=== PATIENT | female | born 1995 | race Caucasian/White ===

== ENCOUNTER → 2022-11-03 | Outpatient (REF) | payer OTHER | LOC: M LAB REF 16:33 | PROVIDERS: ATTEND Nurse Practitioner Family | DX: R30.0 Dysuria (principal) ==

== ENCOUNTER → 2023-03-26 | Outpatient (REF) | payer OTHER ==
[2023-03-26 18:53] LABS: ALBUMIN 3.9 G/DL (3.2-5.2); ALKALINE PHOSPHATASE 65 U/L (46-116); ALT/SGPT 59 U/L (7.0-40); AST/SGOT 30 U/L (<34); BILIRUBIN,TOTAL 0.2 MG/DL (0.3-1.2); BLOOD UREA NITROGEN 13 MG/DL (9-23); CALCIUM LEVEL 9.3 MG/DL (8.5-10.1); CARBON DIOXIDE LEVEL 25 MMOL/L (20-31); CHLORIDE LEVEL 103 MMOL/L (98-107); CHOLESTEROL LEVEL 184 MG/DL (<200); CHOLESTEROL RISK RATIO 5.76 (<5); CREATININE FOR GFR 0.59 MG/DL (0.55-1.30); GLOMERULAR FILTRATION RATE > 60.0 (>60); GLUCOSE, FASTING 104 MG/DL (60-100); HDL CHOLESTEROL 31.9 MG/DL (>40); LDL CHOLESTEROL 101.9 MG/DL (<100); MAGNESIUM LEVEL 1.8 MG/DL (1.8-2.4); NON-HDL-C 152.1 MG/DL; POTASSIUM SERUM 4.8 MMOL/L (3.5-5.1); SODIUM LEVEL 136 MMOL/L (136-145); TOTAL PROTEIN 7.4 G/DL (5.7-8.2); TRIGLYCERIDES LEVEL 251 MG/DL (<150)
== END ==
LOC: M LAB REF 17:35
PROVIDERS: ATTEND Nurse Practitioner Family
DX: E83.42 Hypomagnesemia (principal); R79.89 Other specified abnormal findings of blood chemistry

== ENCOUNTER → 2023-04-12 | Outpatient (CLI) | payer OTHER | LOC: M RAD 07:50 | PROVIDERS: ATTEND Nurse Practitioner Family | DX: Z87.442 Personal history of urinary calculi (principal) ==

== ENCOUNTER → 2023-04-22 | Outpatient (CLI) | payer OTHER | LOC: M RAD 10:17 | PROVIDERS: ATTEND Nurse Practitioner Family | DX: Z87.442 Personal history of urinary calculi (principal) ==

== ENCOUNTER → 2023-12-07 | Outpatient (CLI) | payer OTHER | LOC: M RAD 07:24 | PROVIDERS: ATTEND Physician Assistant | DX: E74.01 von Gierke disease (principal) ==

== ENCOUNTER → 2024-05-16 | Outpatient (REF) | payer OTHER | LOC: M LAB REF 17:10 | PROVIDERS: ATTEND Physician Assistant | DX: J02.9 Acute pharyngitis, unspecified (principal) ==

== ENCOUNTER → 2024-09-06 | Outpatient (REF) | payer OTHER ==
[~2024-09-06] MED LIST: BACTDSTA; HYDR-643; METF-838; TRIA1OI TOP; VALT1TAB PO
== END ==
LOC: M LAB REF 17:02
PROVIDERS: ATTEND Family Medicine
DX: R21 Rash and other nonspecific skin eruption (principal)

== ENCOUNTER 2024-09-08 08:39 | Emergency (ER) | payer OTHER ==
[~2024-09-08] VITALS: Ht 165.1 cm; Wt 88.3 kg
[2024-09-08] MEDS ORDERED: METF-838 (09:01)
[2024-09-08] MEDS ORDERED: HYDR-643 (09:01)
[2024-09-08] MEDS ORDERED: BACTDSTA (09:01)
[2024-09-08 11:20] VITALS: BP 126/74; TEMP 97.3; O2SAT 98
[2024-09-08] MEDS ORDERED: TRIA1OI TOP (11:33)
[2024-09-08] MEDS ORDERED: VALT1TAB PO (11:33)
== END 2024-09-08 11:44 | disposition home or self-care (01) ==
LOC: M ED 08:39
DX: L42 Pityriasis rosea (principal); E28.2 Polycystic ovarian syndrome; Z91.041 Radiographic dye allergy status; Z79.4 Long term (current) use of insulin; Z79.899 Other long term (current) drug therapy; Z79.2 Long term (current) use of antibiotics

== ENCOUNTER → 2024-12-18 | Outpatient (REF) | payer OTHER | LOC: M PLALAB 15:04 | PROVIDERS: ATTEND Advanced Practice Midwife | DX: Z34.80 Encounter for supervision of other normal pregnancy, unspecified trimester (principal) ==

== ENCOUNTER → 2024-12-25 | Outpatient (CLI) | payer OTHER ==
[2024-12-25 18:21] LABS: PLATELET COUNT, AUTOMATED 298 10^3/uL (150-450)
[2024-12-25 18:35] LABS: TOTAL PROTEIN,RANDOM URINE 18.9 MG/DL (0.0-14.0)
[2024-12-25 18:37] LABS: ESTIMATED AVERAGE GLUCOSE 117.0 MG/DL (60-110)
[2024-12-25 18:38] LABS: LDH LACTATE DEHYDROGENASE 114 U/L (120-246)
[2024-12-25 18:39] LABS: ALT/SGPT 30 U/L (7.0-40); AST/SGOT 13 U/L (<34); CREATININE FOR GFR 0.56 MG/DL (0.55-1.30); GLOMERULAR FILTRATION RATE > 90.0 (>60)
[2024-12-25 19:12] LABS: HIV 1&2 SCREEN NEGATIVE (NEGATIVE)
[2024-12-25 19:21] LABS: HEPATITIS C VIRUS ABY INDEX 0.03 INDEX (<0.8)
[2024-12-25 19:39] LABS: Trichomonas vaginalis (AMP) NOT DETECTED (NEGATIVE)
[2024-12-25 20:05] LABS: GC DNA AMPLIFICATION NEGATIVE (NEGATIVE)
== END ==
LOC: M PLALAB 15:44
PROVIDERS: ATTEND Advanced Practice Midwife
DX: Z34.80 Encounter for supervision of other normal pregnancy, unspecified trimester (principal)

== ENCOUNTER → 2025-01-23 | Outpatient (REF) | payer OTHER ==
[~2025-01-23] MED LIST changes: -BACTDSTA; +SULF-8
== END ==
LOC: M SFHCWAGY 13:32
PROVIDERS: ATTEND Nurse Practitioner Family
DX: N39.0 Urinary tract infection, site not specified (principal)